=== PATIENT | male | born 1940 | race Caucasian/White ===

== ENCOUNTER 2022-01-22 12:18 | Inpatient (IN) | payer MEDICARE, BC ==
[~2022-01-22] VITALS: Ht 167.6 cm; Wt 81.2 kg
--- NOTE | 2022-01-22 12:45 | NUR ---
PHLEB TECH AT BEDSIDE FOR BLOOD DRAW
--- NOTE | 2022-01-22 12:47 | NUR ---
COVID SWAB COLLECTED AND SENT TO LAB
--- NOTE | 2022-01-22 12:48 | NUR ---
BUSINESS SERVICES INTERN AT BEDSIDE FOR XRAY
--- NOTE | 2022-01-22 12:50 | NUR ---
MOVE SHEET SUBMITTED.
--- NOTE | 2022-01-22 12:54 | NUR ---
PT TAKEN TO RADIOLOGY FOR CT
[2022-01-22 12:55] LABS: BASOPHILS % (AUTO) 0.2 % (0.0-2.0); EOSINOPHILS % (AUTO) 0.1 % (0.0-6.0); HEMATOCRIT 35 % (39-51); HEMOGLOBIN 11.8 g/dL (13.5-17.5); LYMPHOCYTES # (AUTO) 2.9 K/uL (0.8-4.8); LYMPHOCYTES % (AUTO) 27.1 % (20.0-44.0); MEAN CORPUSCULAR HGB CONC 34 g/dl (31.0-36.0); MEAN CORPUSCULAR VOLUME 102 fL (80-96); MONOCYTES # (AUTO) 0.7 K/uL (0.1-1.30); MONOCYTES % (AUTO) 6.8 % (2.0-12.0); NEUTROPHILS % (AUTO) 65.8 % (43.0-81.0); PLATELET COUNT (AUTO) 256 K/uL (150-450); RED BLOOD CELL COUNT(AUTO) 3.44 MIL/uL (4.5-6.0); WHITE BLOOD COUNT (AUTO) 10.7 K/uL (4.3-11.0)
[2022-01-22] MEDS ORDERED: IV NS 0.9% 1,000 ML BAG IV ONE (13:00)
[2022-01-22] MEDS ORDERED: VALA500T40 PO (13:01)
[2022-01-22] MEDS ORDERED: ASPI-1169 PO (13:01)
[2022-01-22] MEDS ORDERED: LORA-259 PO (13:01)
[2022-01-22] MEDS ORDERED: LEVO75TA PO (13:01)
[2022-01-22] MEDS ORDERED: METO-357 PO (13:01)
[2022-01-22] MEDS ORDERED: SIMV-49 PO (13:01)
[2022-01-22] MEDS ORDERED: DILT-4 PO (13:01)
[2022-01-22] MEDS ORDERED: RAMI10CA69 PO (13:01)
--- NOTE | 2022-01-22 13:23 | NUR ---
PT BACK FROM RADIOLOGY
[2022-01-22 13:32] LABS: ALANINE AMINOTRANSFERASE 22 U/L (12-78); ALBUMIN 3.1 g/dL (3.4-5.0); ALKALINE PHOSPHATASE 68 U/L (46-116); ASPARTATE AMINOTRANSFERASE 17 U/L (15-37); BILIRUBIN,DIRECT 0.1 mg/dL (0.0-0.2); BILIRUBIN,TOTAL 0.5 mg/dL (0.2-1.0); CALCIUM, SERUM 7.8 mg/dL (8.5-10.1); CARBON DIOXIDE 27 mmol/L (21-32); CHLORIDE 99 mmol/L (98-107); CREATININE 1.3 mg/dL (0.6-1.3); GLUCOSE 124 mg/dL (74-106); POTASSIUM 4.1 mmol/L (3.5-5.1); SODIUM SERUM 131 mmol/L (136-145); TOTAL PROTEIN, SERUM 6.2 g/dL (6.4-8.2); UREA NITROGEN, BLOOD 14 mg/dL (7-18)
--- NOTE | 2022-01-22 13:43 | NUR ---
[facility] CALLED CODE OFFICIAL PAGED.
[2022-01-22] MEDS ORDERED: ACETAMINOPHEN 325 MG TABLET PO PRN (15:30)
[2022-01-22] MEDS ORDERED: ONDANSETRON HCL/PF 4 MG/2 ML VIAL IVP PRN (15:30)
--- NOTE | 2022-01-22 15:51 | NUR ---
BED 114-1
[2022-01-22 16:00] VITALS: BP 166/65
--- NOTE | 2022-01-22 16:00 | NUR ---
[facility] IMAGE CONSULTANT NOTE RECEIVED PATIENT FROM ER WITH DX F SYNCOPE. AMBULATES INDEPENDENTLY. AOX 4. RA 100% NON LABORED, NO S/S OF RESPIRATORY DISTRESS. SINUS RHYTHM 60. HE IS ABLE TO USE BATHROOM/URINAL. PT HAS LEFT FOREHEAD AND LEFT KNEE ABRASION, WOUND CONSULT ORDERED. PT IS AT FALL RISK. DIET FOR CELIAC DISEASE ORDERED. IV ACCESS LA #22G FLUSH WITH NS, N S/S OF INFILTRATION.
--- NOTE | 2022-01-22 16:05 | NUR ---
REPORT GIVEN TO WAI BACA OF TELE
--- NOTE | 2022-01-22 17:52 | NUR ---
PT TRANSFERRED TO [facility] ACLS PROTOCOL. WARM HANDOFF GIVEN TO RN ASSIGNED.
--- NOTE | 2022-01-22 19:10 | NUR ---
RN NOTES: RECEIVED AWAKE ON BED, NEW ADMISSION FROM HOME.HE HAD SYNCOPE ATTACK AND SUSTAINED BRUISE ON THE LEFT FOREHEAD AND AND LEFT KNEE, HISTORY OF STROKE AND CELIAC DISEASE.A/OX4, ON ROOM AIR, ON TELE MONITOR SINUS RHYTHM-70'S, AMBULATORY, ORIENTED TO UNIT AND STAFF, INSTRUCT TO USE URINAL AND KEPT CALL LIGHT WITHIN EASY REACH PER ENDORSEMENT FOR WOUND AND DIETARY CONSULT, PT EVAL, HIS HOME MEDS ARE ON HOLD, ALEKSEY ON HOLD, D/C DILTIAZEM CONTINUE BETA BLOCKERS. -FALL AND SAFETY PRECAUTION OBSERVED.
--- NOTE | 2022-01-22 19:10 | NUR ---
RN CLOSING NOTES ALL MEDS WERE ADMINISTERED. ALL NEEDS WERE MET. NO PAIN AT THIS TIME. BED IN LOWEST POSITION, SIDE RAILS UP X2, CALL LIGHT WITHIN REACH, WILL ENDORSE CYBER LEGAL ADVISOR NURSE FOR CONTINUTITY OF CARE
[2022-01-22] MEDS: ENOXAPARIN SODIUM 40 MG/0.4 ML DISP.SYRIN SQ SCH (19:46)
[2022-01-22 20:00] VITALS: BP 152/79
--- NOTE | 2022-01-22 20:10 | NUR ---
RN NOTES: NON LABORED BREATHING, NO PAIN OR DISCOMFORT, HE HAS A VISITOR AND HE WAS TELLING HE FELT MUCH BETTER, RN INSTRUCT WE WILL MONITOR YOU FOR TONIGHT,HE WANTS TO BE DISCHARGE IN THE MORNING, OUTGOING RN GAVE HIS LOVENOX, COOPERATIVE.
--- NOTE | 2022-01-22 20:36 | NUR ---
RN NOTES: - VERBALIZED HE NEEDS HIS LORAZEPAM IN THE NIGHT HE CANNOT SLEEP WITHOUT IT, HE IS SWEATING AND SHAKING IF HE DONT GET IT,. -ASSISTED TO THE BATHROOM AND GIVEN SOME SNACK. -RN CHECKED HIS PRN MEDICATION, HE REQUEST TO GET ATIVAN AT AROUND 1030PM.
[2022-01-22] MEDS: IV NS 0.9% 1,000 ML IV PRN (21:11)
--- NOTE | 2022-01-22 21:14 | NUR ---
RN NOTES; IV OF NS AT 75 ML/HR ONGOING,IV CANNULA ON THE LH G#20 INTACT AND PATENT.
[2022-01-22] MEDS ORDERED: SIMVASTATIN 20 MG TABLET PO SCH (22:00)
[2022-01-22] MEDS ORDERED: LORAZEPAM 1 MG TABLET PO PRN (22:00)
--- NOTE | 2022-01-22 22:33 | NUR ---
RN NOTES: AWAKE,REQUEST FOR HIS SLEEPING PILL, HE SAID HE CANNOT SLEEP WITHOUT IT.
[2022-01-23] VITALS (7 sets, daily range): BP systolic 110–145; BP diastolic 56–81
--- NOTE | 2022-01-23 01:20 | NUR ---
RN NOTES: REFUSED FOR ORTHOSTATIC BP, HE WANTS TO SLEEP AND REST.
[2022-01-23] MEDS ORDERED: LEVOTHYROXINE SODIUM 75 MCG TABLET PO SCH (07:30)
[2022-01-23 07:33] LABS: HEMATOCRIT 31 % (39-51); HEMOGLOBIN 10.8 g/dL (13.5-17.5); MEAN CORPUSCULAR HGB CONC 35 g/dl (31.0-36.0); MEAN CORPUSCULAR VOLUME 101 fL (80-96); RED BLOOD CELL COUNT(AUTO) 3.09 MIL/uL (4.5-6.0); WHITE BLOOD COUNT (AUTO) 7.7 K/uL (4.3-11.0)
[2022-01-23 07:34] LABS: BASOPHILS % (AUTO) 0.2 % (0.0-2.0); EOSINOPHILS % (AUTO) 0.5 % (0.0-6.0); LYMPHOCYTES % (AUTO) 26.4 % (20.0-44.0); MONOCYTES # (AUTO) 0.8 K/uL (0.1-1.30); MONOCYTES % (AUTO) 10.6 % (2.0-12.0); NEUTROPHILS # (AUTO) 4.8 K/uL (1.8-8.9); NEUTROPHILS % (AUTO) 62.3 % (43.0-81.0); PLATELET COUNT (AUTO) 229 K/uL (150-450)
[2022-01-23 07:44] LABS: CARBON DIOXIDE 28 mmol/L (21-32); CHLORIDE 102 mmol/L (98-107); CREATININE 1.1 mg/dL (0.6-1.3); GLUCOSE 104 mg/dL (74-106); MAGNESIUM 2.1 mg/dL (1.8-2.4); PHOSPHORUS 3.5 mg/dL (2.5-4.9); POTASSIUM 4.3 mmol/L (3.5-5.1); SODIUM SERUM 134 mmol/L (136-145); UREA NITROGEN, BLOOD 9 mg/dL (7-18)
[2022-01-23 07:47] LABS: CHOLESTEROL 107 mg/dL (<200); HDL CHOLESTEROL 38 mg/dL (40-60); LDL 55 mg/dL (0-99); TRIGLYCERIDES 74 mg/dL (30-150)
--- NOTE | 2022-01-23 07:59 | NUR ---
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
[2022-01-23] MEDS ORDERED: METOPROLOL SUCCINATE 50 MG TAB.SR.24H PO SCH (09:00)
[2022-01-23] MEDS ORDERED: ASPIRIN 81 MG TAB.CHEW PO SCH (09:00)
[2022-01-23] MEDS ORDERED: DILTIAZEM HCL CD 240 MG PO SCH (09:00)
[2022-01-23] MEDS ORDERED: VALACYCLOVIR HCL 500 MG TABLET PO SCH (09:00)
[2022-01-23] MEDS ORDERED: IV NS 0.9% 1,000 ML IV ONE (11:30)
[2022-01-23] MEDS: IV NS 0.9% 1,000 ML IV PRN (13:00)
[2022-01-23] MEDS: ENOXAPARIN SODIUM 40 MG/0.4 ML DISP.SYRIN SQ SCH (17:44)
--- NOTE | 2022-01-23 18:48 | NUR ---
RN NOTE PT AMA. IN STABLE CONDITION. PT CT ABD PELIVS STILL PENDING. EXPLAINED RISK OF AMA. PMD MADE AWARE. WITH ORDERS TO ADVISE PT NOT TO TAKE BLOOD THINNERS, PT AND VERBALIZED UNDERSTANDING. AMA FORM SIGNED. IV ACCESS D/C. PT ABLE TO AMBULATE WITHOUT ASSIST.
== END 2022-01-23 18:47 | disposition left against medical advice (07) | DRG 641 ==
LOC: ER 12:25 → TELE1 16:07
PROVIDERS: ADMIT Nurse Practitioner Acute Care; ATTEND Nurse Practitioner Acute Care
DX: E86.0 Dehydration (principal); E44.1 Mild protein-calorie malnutrition; E86.1 Hypovolemia; E87.1 Hypo-osmolality and hyponatremia; Z20.822 Contact with and (suspected) exposure to COVID-19; Z86.73 Personal history of transient ischemic attack (TIA), and cerebral infarction without residual deficits; I10 Essential (primary) hypertension; Z91.011 Allergy to milk products; Z91.018 Allergy to other foods; Z79.82 Long term (current) use of aspirin; Z79.899 Other long term (current) drug therapy; D53.1 Other megaloblastic anemias, not elsewhere classified; E88.09 Other disorders of plasma-protein metabolism, not elsewhere classified; I25.10 Atherosclerotic heart disease of native coronary artery without angina pectoris; D63.8 Anemia in other chronic diseases classified elsewhere; I95.1 Orthostatic hypotension; W18.30XA Fall on same level, unspecified, initial encounter; Y92.009 Unspecified place in unspecified non-institutional (private) residence as the place of occurrence of the external cause
CPT/HCPCS: 36415; 70450-TC; 71045-TC; 80048-TC; 80061-TC; 80076-TC; 82962-TC; 83735-TC; 83880; 84100-TC; 84484-TC; 85025-TC; 85730-TC; 87081-TC; 93307-TC; 97116-TC; 97530-TC; C9803; G0378; J1650; J7030